=== PATIENT | male | born 1970 | race Caucasian/White ===

== ENCOUNTER 2019-07-19 18:56 | Observation (INO) ==
[2019-07-20] MEDS ORDERED: Naloxone 0.4 MG/ML INJ IVP PRN (03:16)
[2019-07-20] MEDS ORDERED: Nicotine 21 MG PATCH.TD24 TD SCH (03:19)
[2019-07-20] MEDS ORDERED: *HR* Heparin 5,000 UNIT/ML VIAL SQ SCH (06:00)
[2019-07-20 06:47] LABS: Hematocrit 48.6 % (37.5-50.1); Hemoglobin 16.6 g/dL (12.9-16.9); Immature Platelets 2.3 % (1.1-6.1); Mean Corpuscular HGB Conc 34.2 g/dL (31.6-35.5); Mean Corpuscular Hemoglobin 32.4 pg (28.0-33.3); Mean Corpuscular Volume 94.7 fL (83.0-100.0); Mean Platelet Volume 9.5 fL (9.4-12.4); Red Blood Count 5.13 M/mcL (4.19-5.50); White Blood Count 10.4 K/mcL (4.3-11.1)
[2019-07-20 07:13] LABS: BUN/Creatinine Ratio 17 (6-26); Blood Urea Nitrogen 17 mg/dL (6-20); Calcium 9.1 mg/dL (8.6-10.3); Carbon Dioxide 25 mEq/L (23-29); Chloride 104 mEq/L (98-107); Glucose 89 mg/dL (70-105); Osmolality,Calculated 283 (280-300); Potassium 4.4 mEq/L (3.5-5.1); Sodium 136 mEq/L (136-145); Troponin I < 0.03 ng/mL (< 0.04); eGFR For African Americans > 60 (> 60); eGFR For Non-African Americans > 60 (> 60)
[2019-07-20] MEDS ORDERED: Aspirin 81 MG TAB.CHEW PO SCH (11:15)
[2019-07-20 11:55] VITALS: BP 134/80
[2019-07-20] MEDS ORDERED: Nitroglycerin 0.4 MG TAB.SUBL SL PRN (13:05)
== END 2019-07-20 15:20 | disposition home or self-care (01) ==
LOC: 3BNU → SUATTDRO 20:04
PROVIDERS: ADMIT Internal Medicine; ATTEND Internal Medicine

== ENCOUNTER 2019-07-30 18:46 | Observation (INO) ==
[2019-07-30 19:42] LABS: Troponin I < 0.03 ng/mL (< 0.04)
[2019-07-30 19:49] LABS: BUN/Creatinine Ratio 14 (6-26); Blood Urea Nitrogen 15 mg/dL (6-20); Calcium 9.3 mg/dL (8.6-10.3); Carbon Dioxide 28 mEq/L (23-29); Chloride 102 mEq/L (98-107); Glucose 114 mg/dL (70-105); Osmolality,Calculated 286 (280-300); Sodium 137 mEq/L (136-145); eGFR For African Americans > 60 (> 60); eGFR For Non-African Americans > 60 (> 60)
[2019-07-30 19:52] LABS: Basophils # 0.1 K/mcL (0.0-0.2); Basophils % 0.5 %; Eosinophils # 0.1 K/mcL (0.0-0.6); Eosinophils % 1.4 %; Hematocrit 49.8 % (37.5-50.1); Hemoglobin 17.4 g/dL (12.9-16.9); Immature Granulocytes % 0.5 % (0-4); Lymphocytes # 2.6 K/mcL (0.6-4.6); Lymphocytes % 25.9 %; Mean Corpuscular HGB Conc 34.9 g/dL (31.6-35.5); Mean Corpuscular Hemoglobin 32.3 pg (28.0-33.3); Mean Corpuscular Volume 92.4 fL (83.0-100.0); Mean Platelet Volume 9.9 fL (9.4-12.4); Monocytes % 9.5 %; Neutrophils # 6.3 K/mcL (1.6-8.9); Platelet Count 218 K/mcL (140-400); Red Blood Count 5.39 M/mcL (4.19-5.50); Red Cell Distribution Width 12.6 % (11.5-14.5); Segmented Neutrophils % 62.2 %; White Blood Count 10.1 K/mcL (4.3-11.1)
[2019-07-30] MEDS ORDERED: Nitroglycerin 0.4 MG TAB.SUBL SL PRN (22:46)
[2019-07-30] MEDS ORDERED: Nitroglycerin 0.4 MG TAB.SUBL SL ONE (22:50)
[2019-07-30] MEDS ORDERED: Naloxone 0.4 MG/ML INJ IVP PRN (23:53)
[2019-07-31 02:02] LABS: Basophils # 0.1 K/mcL (0.0-0.2); Basophils % 0.6 %; Eosinophils # 0.2 K/mcL (0.0-0.6); Eosinophils % 1.9 %; Hematocrit 47.8 % (37.5-50.1); Hemoglobin 16.8 g/dL (12.9-16.9); Immature Granulocytes % 0.4 % (0-4); Lymphocytes # 3.3 K/mcL (0.6-4.6); Lymphocytes % 32.7 %; Mean Corpuscular HGB Conc 35.1 g/dL (31.6-35.5); Mean Corpuscular Hemoglobin 32.2 pg (28.0-33.3); Mean Corpuscular Volume 91.6 fL (83.0-100.0); Mean Platelet Volume 9.9 fL (9.4-12.4); Monocytes # 1.2 K/mcL (0.0-1.3); Monocytes % 11.5 %; Neutrophils # 5.3 K/mcL (1.6-8.9); Platelet Count 196 K/mcL (140-400); Red Blood Count 5.22 M/mcL (4.19-5.50); Red Cell Distribution Width 12.5 % (11.5-14.5); Segmented Neutrophils % 52.9 %; White Blood Count 10.1 K/mcL (4.3-11.1)
[2019-07-31 02:21] LABS: BUN/Creatinine Ratio 14 (6-26); Blood Urea Nitrogen 16 mg/dL (6-20); Carbon Dioxide 29 mEq/L (23-29); Chloride 108 mEq/L (98-107); Glucose 109 mg/dL (70-105); Osmolality,Calculated 296 (280-300); Potassium 3.8 mEq/L (3.5-5.1); Sodium 142 mEq/L (136-145); eGFR For African Americans > 60 (> 60); eGFR For Non-African Americans > 60 (> 60)
[2019-07-31] MEDS ORDERED: *HR* Heparin 5,000 UNIT/ML VIAL SQ SCH (06:00)
[2019-07-31] MEDS ORDERED: Aspirin Enteric Coated 81 MG Tablet PO SCH (09:00)
[2019-07-31] MEDS ORDERED: *HR* Midazolam HCl 2 MG/2 ML VIAL ONE (11:42)
[2019-07-31] MEDS ORDERED: *HR* FentaNYL (PF) 100 MCG/2 ML VIAL ONE (11:42)
[2019-07-31] MEDS ORDERED: 0.9 % Sodium Chloride 2,000 ML ONE (11:42)
[2019-07-31] MEDS ORDERED: ISOVUE-370 200 ML INFUS..BTL ONE (11:43)
[2019-07-31] MEDS ORDERED: *HR* Heparin 10,000 UNIT/10 ML VIAL ONE (11:43)
[2019-07-31] MEDS ORDERED: Nitroglycerin 1,000 MCG/10 ML VIAL IV ONE (11:43)
[2019-07-31] MEDS ORDERED: Heparin 1,000 UNITS/500 mL 500 ML ONE (11:43)
[2019-07-31] MEDS ORDERED: Verapamil 5 MG/2 ML VIAL ONE (11:59)
[2019-07-31 15:59] VITALS: BP 105/63
== END 2019-07-31 16:25 | disposition home or self-care (01) ==
LOC: 3BNU 18:46 → EMEROOARM 18:46 → 3BNU 21:02
PROVIDERS: ADMIT Internal Medicine; ATTEND Internal Medicine